=== PATIENT | male | born 1970 | race Caucasian/White ===

== ENCOUNTER 2023-01-11 08:54 | Day surgery (SDC) | payer BC ==
[~2023-01-11 08:54] MED LIST: EPINEPHrine 1 MG/ML 30 ML MDV IRR SCH; Lactated Ringers 1,000 ML IV SCH; Lidocaine 1%/Sod Bicarbonate in NS 8.4% 1 ML Syringe IDERM PRN; Sodium Chloride 0.9% 10 ML Syringe FLUSH PRN; Sodium Chloride 0.9% 10 ML Syringe FLUSH SCH
[2023-01-11] MEDS ORDERED: fentaNYL 100 MCG/2 ML SDV IVPUSH PRN (09:23)
[2023-01-11] MEDS ORDERED: HYDROmorphone 0.5 MG/0.5 ML Syringe IVPUSH PRN (09:23)
[2023-01-11] MEDS ORDERED: Ondansetron 4 MG/2 ML SDV IVPUSH PRN (09:23)
[2023-01-11] MEDS ORDERED: Midazolam 1 MG/ML 2 ML SDV ONE (09:27)
[2023-01-11] MEDS ORDERED: Lidocaine 1% 2 ML ONE (09:27)
[2023-01-11] MEDS ORDERED: Ondansetron 4 MG/2 ML SDV ONE (09:27)
[2023-01-11] MEDS ORDERED: fentaNYL 250 MCG/5 ML SDV ONE (09:27)
[2023-01-11] MEDS ORDERED: Rocuronium 50 MG/5 ML Vial ONE ×2 (09:27→11:13)
[2023-01-11] MEDS ORDERED: Propofol 200 MG/20 ML SDV ONE ×2 (09:27→10:30)
[2023-01-11] MEDS ORDERED: EPINEPHrine 1 MG/ML SDV ONE ×2 (09:34→10:18)
[2023-01-11] MEDS ORDERED: Ropivacaine 0.5% 5 MG/ML 30 ML SDV ONE ×2 (09:34→10:18)
[2023-01-11] MEDS ORDERED: ceFAZolin 2 GM Vial ONE ×2 (10:13→11:03)
[2023-01-11] MEDS ORDERED: ePHEDrine 50 MG/ML SDV ONE (10:45)
[2023-01-11] MEDS ORDERED: Sugammadex Sodium 200 MG/2 ML VIAL ONE (12:06)
[2023-01-11] MEDS ORDERED: Albuterol 0.083% 2.5 MG/3 ML Neb Soln NEB SCH (13:15)
[2023-01-11 16:41] VITALS: BP 126/75
[2023-01-11 16:42] VITALS: PULSE 87
== END 2023-01-11 17:36 | disposition home or self-care (01) ==
LOC: JD.SDS 08:54 → JD.MS 16:36 → JD.SDS 17:36
PROVIDERS: ATTEND Orthopaedic Surgery
DX: M75.111 Incomplete rotator cuff tear or rupture of right shoulder, not specified as traumatic (principal); M75.51 Bursitis of right shoulder; M75.21 Bicipital tendinitis, right shoulder; S43.401A Unspecified sprain of right shoulder joint, initial encounter; G89.29 Other chronic pain; K21.9 Gastro-esophageal reflux disease without esophagitis; E78.5 Hyperlipidemia, unspecified; I10 Essential (primary) hypertension; M10.9 Gout, unspecified; G47.33 Obstructive sleep apnea (adult) (pediatric); E11.9 Type 2 diabetes mellitus without complications; E66.9 Obesity, unspecified; G43.909 Migraine, unspecified, not intractable, without status migrainosus; F17.290 Nicotine dependence, other tobacco product, uncomplicated; Z88.5 Allergy status to narcotic agent; Z79.84 Long term (current) use of oral hypoglycemic drugs; Z79.899 Other long term (current) drug therapy; Z79.85 Long-term (current) use of injectable non-insulin antidiabetic drugs
CPT/HCPCS: 29826; 29827; 64415; C1713; J0171; J0690; J2250; J2405; J2704; J2795; J3010; J3490; J7120; 01630; J7620-GY

== ENCOUNTER 2023-04-17 09:06 | Day surgery (SDC) | payer BC ==
[~2023-04-17 09:06] MED LIST changes: -EPINEPHrine 1 MG/ML 30 ML MDV IRR SCH; -Lidocaine 1%/Sod Bicarbonate in NS 8.4% 1 ML Syringe IDERM PRN
[2023-04-17] MEDS ORDERED: Propofol 200 MG/20 ML SDV ONE ×2 (09:30→09:56)
[2023-04-17] MEDS ORDERED: Lidocaine 2% 100 MG/5 ML Syringe ONE (09:30)
[2023-04-17] MEDS ORDERED: Midazolam 1 MG/ML 2 ML SDV ONE (09:33)
[2023-04-17 14:49] VITALS: BP 110/75; PULSE 68
== END 2023-04-17 12:00 | disposition home or self-care (01) ==
LOC: JD.SDS 09:06
PROVIDERS: ATTEND Surgery
DX: Z12.11 Encounter for screening for malignant neoplasm of colon (principal); D12.0 Benign neoplasm of cecum; D12.2 Benign neoplasm of ascending colon; D12.3 Benign neoplasm of transverse colon; D12.8 Benign neoplasm of rectum; K21.9 Gastro-esophageal reflux disease without esophagitis; E78.5 Hyperlipidemia, unspecified; I10 Essential (primary) hypertension; G43.909 Migraine, unspecified, not intractable, without status migrainosus; E66.9 Obesity, unspecified; R00.2 Palpitations; G47.33 Obstructive sleep apnea (adult) (pediatric); E11.9 Type 2 diabetes mellitus without complications; Z88.5 Allergy status to narcotic agent; Z68.41 Body mass index [BMI] 40.0-44.9, adult; Z86.010 Personal history of colon polyps; Z87.891 Personal history of nicotine dependence; Z79.899 Other long term (current) drug therapy
CPT/HCPCS: 00811; J2250; J2704; J3490; J7120